=== PATIENT | male | born 1955 | race Caucasian/White ===

== ENCOUNTER → 2016-08-28 | Outpatient (CLI) | payer OTHER ==
--- NOTE | ~2016-08-28 | ENPV ---
Vascular Lower Extremities DVT Study Procedure Demographics Patient Name IDALIA MERAZ Date of Study 08/28/2016 Patient Number [id number] Gender Male Date of 1955 Age 60 Visit Number [id number] Height Accession Number [id number] Weight Room Number BSA BMI Referring Lisa Wick MD Interpreting Nikita Marsh MD Physician Physician Physician Ordering Physician Lisa Wick MD [id number] Programmer Analyst Lidar Analyst Morenitapelon Womack RDCS, RVT Rosa Day RVT, RDCS Conclusions Summary TECHNIQUE: The veins of the lower extremity on the right were evaluated from the groin to the ankle using albrecht scale, compression, and augmentation. Venous hemodynamics were evaluated with color flow and spectral Doppler. FINDINGS: The deep and superficial veins of the right leg show normal color flow and compressibility without thrombosis. IMPRESSION: 1. NEGATIVE RIGHT LOWER EXTREMITY VENOUS DOPPLER STUDY. Procedure Type of Study: Veins:Lower Extremities DVT Study, Lower Extremity Right. Indications for Study:Unilateral pain and edema. Patient Status:Routine. Study Location:Vascular Lab. Technical Quality:Good visualization. Velocities are measured in cm/s ; Diameters are measured in cm Right Lower Extremities DVT Study Measurements Right 2D and Doppler Measurements + + + + +------+------+ + !Location !Visualized!Compressibility!Thrombosis!Signal!Reflux!Reflux ! ! ! ! ! ! ! !(sec) ! + + + + +------+------+ + !GSV Thigh !Yes !Yes !None !Phasic!No ! ! + + + + +------+------+ + !Common !Yes !Yes !None !Phasic!No ! ! !Femoral ! ! ! ! ! ! ! + + + + +------+------+ + !Prox !Yes !Yes !None !Phasic!No ! ! !Femoral ! ! ! ! ! ! ! + + + + +------+------+ + !Mid Femoral!Yes !Yes !None !Phasic!No ! ! + + + + +------+------+ + !Dist !Yes !Yes !None !Phasic!No ! ! !Femoral ! ! ! ! ! ! ! + + + + +------+------+ + !Popliteal !Yes !Yes !None !Phasic!No ! ! + + + + +------+------+ + !Gastroc !Yes !Yes !None !Phasic!No ! ! + + + + +------+------+ + !PTV !Yes !Yes !None !Phasic!No ! ! + + + + +------+------+ + !Peroneal !Yes !Yes !None !Phasic!No ! ! + + + + +------+------+ + Left Lower Extremities DVT Study Measurements Left 2D and Doppler Measurements + + + + +------+------+ + !Location !Visualized!Compressibility!Thrombosis!Signal!Reflux!Reflux ! ! ! ! ! ! ! !(sec) ! + + + + +------+------+ + !Common !Yes !Yes !None !Phasic! ! ! !Femoral ! ! ! ! ! ! ! + + + + +------+------+ + Impressions Right Impression no dvt seen Signature dtt: dtd: 08/28/16 1214 Physician Self Edit
== END | disposition disaster alternative care site (69) ==
LOC: GCAR 12:00
DX: M79.89 Other specified soft tissue disorders (principal)